=== PATIENT | female | born 1995 | race Caucasian/White ===

== ENCOUNTER 2020-01-04 09:45 | Inpatient (IN) | payer OTHER ==
[2019-12-31 11:13] VITALS: BMI 49.8
[2020-01-04] MEDS ORDERED: CITRIC ACID-SODIUM CITRATE 15 ML CUP PO ONE (10:00)
[2020-01-04] MEDS ORDERED: ceFAZolin 3 GM in SODIUM CHLORIDE 0.9% 100 ML IVPB ONE (10:00)
[2020-01-04] MEDS: LACTATED RINGERS 1,000 ML IV ONE ×2 (10:12→11:53)
[2020-01-04 10:19] LABS: Basophils % (A) 0 %; Eosinophils # (A) 0.1 k/uL (0-0.7); Eosinophils % (A) 1 %; Lymphocytes # (A) 1.5 k/uL (1.0-4.8); Lymphocytes % (A) 17 %; MCH 27.1 pg (25.0-35.0); MCHC 32.6 g/dL (31.0-37.0); MCV 83.2 fL (80.0-100.0); Mean Platelet Volume 8.7; Monocytes # (A) 0.5 k/uL (0-1.0); Monocytes % (A) 6 %; Neutrophils # (A) 6.8 k/uL (1.3-7.7); Neutrophils % (A) 75 %; Platelet Count 272 k/uL (150-450); RBC 4.81 m/uL (3.80-5.40); RDW 13.6 % (11.5-15.5); WBC 9.1 k/uL (3.8-10.6)
--- NOTE | 2020-01-04 11:15 | P.HPOB ---
History of Present Illness H&P Date: 01/04/20 Chief Complaint: Here for repeat section, declining tubal ligation This is a 24-year-old white female 2 para 1001 EDC 01/10/2020 at 39 and one sevenths weeks' gestation. Patient presents today for repeat low transverse section. She is declining option for , declining option for tubal ligation. She denies fluid leakage or vaginal bleeding. Fetus is been active throughout the . history significant for blood type A-, father of the baby is A- as well. Rubella status immune. Hepatitis B surface antigen, HIV testing, kierra orrhea and chlamydia cultures, Pap smear testing, VDRL all negative. Group B strep cultures positive. One-hour Glucola elevated, 3 hour GTT within normal limits. Family history is unremarkable. Social history patient is single, she is a current tobacco smoker. She works at a local restaurant. She denies alcohol or drug use. Past surgical history section, low transverse in 2017. Past medical history significant for obesity. ALLERGIES none known. Current medications vitamins daily. On exam patient is 5 foot 4 inches, 290 pounds, blood pressure 118/54 on admission. The general physical exam is within normal limits. Chest is clear in all gonzáles. Extremities reveal no edema. is vertex to Arnel's maneuvers, fundal height greater than 40 cm. Heart rate of the fetus consistent with reactive NST. No uterine contractions graphing. Impression: 39 and one sevenths weeks intrauterine , here for repeat low transverse section, declining tubal ligation. Positive group B strep cultures. Plan: We will proceed with repeat low transverse section, antibiotic prophylaxis. All risks benefits and alternatives have been discussed in detail. All questions answered. Review of Systems Constitutional: Reports as per HPI Past Medical History Past Medical History: No Reported History Additional Past Medical History / Comment(s): Morbid maternal obesity History of Any Multi-Drug Resistant Organisms: None Reported Past Surgical History: Section Past Anesthesia/Blood Transfusion Reactions: No Reported Reaction Past Psychological History: No Psychological Hx Reported Smoking Status: Former smoker Past Alcohol Use History: None Reported Past Drug Use History: None Reported - Past Family History Mother Family Medical History: No Reported History Medications and Allergies Home Medications Medication Instructions Recorded Confirmed Type Pnv,Calcium 72/Iron/Folic Acid 1 tab PO DAILY 02/24/17 01/04/20 History [ Plus Tablet] Allergies Allergy/AdvReac Type Severity Reaction Status Date / Time No Known Allergies Allergy Verified 01/04/20 09:59 Exam Vital Signs Temp Pulse Resp BP Pulse Ox 01/04/20 10:05 97.8 F 100 18 118/57 97 Intake and Output 01/03/20 01/04/20 01/04/20 22:59 06:59 14:59 Other: Weight 131.542 kg See dictation under HPI please Results Result Diagrams: 01/04/20 10:10 Assessment and Plan Assessment: 39 and one sevenths weeks intrauterine , declining , morbid mater nal obesity, positive group B strep cultures. Plan: We will proceed with repeat low transverse section. Antibiotic prophylaxis. All risks benefits and alternatives of the procedure have been discussed, all questions answered. Time with Patient: Less than 30
[2020-01-04] MEDS ORDERED: MORPHINE SULFATE (PF) 0.3 MG/0.3 ML SYR ONE (12:24)
[2020-01-04] MEDS ORDERED: KETOROLAC 15 MG/ML 1 ML VIAL ONE (12:24)
[2020-01-04] MEDS ORDERED: OXYTOCIN 10 UNIT/ML 1 ML VIAL ONE (12:24)
[2020-01-04] MEDS ORDERED: ONDANSETRON 4 MG/2 ML VIAL ONE (12:24)
[2020-01-04] MEDS ORDERED: HYDROmorphone (PF) 1 MG/ML ONE (12:24)
[2020-01-04] MEDS ORDERED: SIMETHICONE 80 MG CHEWABLE PO PRN (13:21)
[2020-01-04] MEDS ORDERED: ZOLPIDEM 5 MG TAB PO PRN (13:21)
[2020-01-04] MEDS ORDERED: ACETAMINOPHEN TAB 325 MG TAB PO PRN (13:21)
[2020-01-04] MEDS ORDERED: ONDANSETRON 4 MG/2 ML VIAL IVP PRN (13:21)
[2020-01-04] MEDS ORDERED: NALOXONE 0.4 MG/ML 1 ML VIAL IV PRN (13:21)
[2020-01-04] MEDS ORDERED: diphenhydrAMINE 25 MG CAP PO PRN (13:21)
[2020-01-04] MEDS ORDERED: diphenhydrAMINE 50 MG/ML 1 ML VIAL IVP PRN ×2 (13:21)
[2020-01-04] MEDS ORDERED: METOCLOPRAMIDE 5 MG/ML 2 ML VIAL IVP PRN (13:21)
[2020-01-04] MEDS ORDERED: diphenhydrAMINE 50 MG CAP PO PRN (13:21)
--- NOTE | 2020-01-04 13:21 | P.OP ---
Date of Procedure: 01/04/20 Preoperative Diagnosis: 39 and one sevenths weeks intrauterine , previous declining , morbid maternal obesity, positive group B strep status Postoperative Diagnosis: Same, liveborn male infant, nuchal cord 1. Normal-appearing tubes and ovaries bilaterally. Procedure(s) Performed: Repeat low transverse section, antibiotic prophylaxis Anesthesia: spinal Surgeon: Tania Pascual End Trimmer #1: Laina Lopez Estimated Blood Loss (ml): 500 IV fluids (ml): 1,000 Urine output (ml): 300 Pathology: none sent Condition: stable Disposition: PACU Operative Findings: Liveborn male , nuchal cord 1, 8 lbs. 15 oz., 4050 g Description of Procedure: Patient is brought to the operating suite where a spinal with Duramorph is administered without difficulty. She's placed in the dorsal supine position with left lateral uterine displacement. 3 g of Ancef are given. The appropriate timeout is performed to assure proper patient and procedural ident ification. The abdomen is prepped and draped in the usual sterile fashion, Cardenas catheter placed to direct drainage. Analgesia is checked and noted to be adequate. A repeat low transverse skin incision is made in this is carried down through the subcutaneous tissue which is approximately 8 cm in depth. Fascia is isolated, scored, extended bilaterally with curved Krause scissors. Peritoneum is next identified and incised, there is no bowel or bladder involvement. The disposable ring retractors placed now into the abdominal cavity for excellent exposure. A repeat low transverse uterine incision is made in this is extended bluntly. Infant's head is delivered in the occiput anterior position. There is a nuchal cord 1 that is reduced. Patient is officially delivered of a liveborn male at 1245 hours. Umbilical cord is doubly clamped and ligated, he is handed to waiting nurses for evaluation where scores of 8 and 9 at one and 5 minutes respectively are given. Placenta is removed manually, it is inspected and noted to be intact with trivascular cord. Uterus is then externalized. It is swept clean with a sterile sponge. The uterus is closed in a two-step fashion, first layer running locking with 0 Vicryl. Second layer imbricated with 0 Vicryl. Both tubes and ovaries appear normal to inspection. No uterine anomalies are noted. The disposable ring retractors removed. Uterus is placed back into the abdominal cavity. Bilateral gutters are inspected and cleaned. Uterine incision is once again inspected, clean and dry. The peritoneum was allowed close by secondary intention. The fascia is closed in a running stitch of 0 Vicryl suture for excellent reapproximation. Subcutaneous tissue is irrigated, noted to be clean and dry. It is reapproximated using 3-0 Vicryl in a running fashion. 4-0 undyed Monocryl is used for final skin closure. Steri-Strips and Mastisol are applied to the wound. Cardenas is noted to be draining clear urine. Uterus is ma ssaged for a small amount of bleeding. It is firm and in the midline, symmetric and 18 week size. All sponge needle and enhancement counts are correct. Patient is brought back to recovery room in very good condition with stable vital signs including 100% O2 saturation, pulse 84, blood pressure 141/62. Circumcision for her infant son.
[2020-01-04] MEDS: LACTATED RINGERS 1,000 ML IV SCH ×2 (14:20→20:21)
[2020-01-04] MEDS: SENNOSIDES-DOCUSATE SODIUM 1 EACH TAB PO SCH (20:07)
[2020-01-04] MEDS: KETOROLAC 15 MG/ML 1 ML VIAL IVP PRN (20:35)
[2020-01-05] MEDS: LACTATED RINGERS 1,000 ML IV SCH (00:33)
[2020-01-05 06:54] LABS: Basophils % (A) 0 %; Eosinophils % (A) 0 %; HCT 35.4 % (34.0-46.0); HGB 11.3 gm/dL (11.4-16.0); Lymphocytes # (A) 1.7 k/uL (1.0-4.8); Lymphocytes % (A) 17 %; MCH 26.9 pg (25.0-35.0); MCHC 31.9 g/dL (31.0-37.0); MCV 84.5 fL (80.0-100.0); Mean Platelet Volume 8.7; Monocytes # (A) 0.6 k/uL (0-1.0); Monocytes % (A) 6 %; Neutrophils # (A) 7.6 k/uL (1.3-7.7); Neutrophils % (A) 74 %; Platelet Count 242 k/uL (150-450); RDW 13.5 % (11.5-15.5); WBC 10.2 k/uL (3.8-10.6)
--- NOTE | 2020-01-05 07:10 | P.PN ---
Progress Note - Text 01/05/20 630am 24-year-old female status post with a spinal Duramorph. Patient was seen and evaluated this morning, patient has a VAS of 1 with no complaints of pruritus. Patient did have nausea when she first came out of surgery with subsequently has done well.
--- NOTE | 2020-01-05 08:24 | P.PN ---
Subjective Progress Note Date: 01/05/20 Principal diagnosis: Postoperative day #1 Slept well. Minimal pain. Minimal lochia rubra. No complaints. Positive flatus. Objective - Vital Signs Vital signs: Vital Signs Temp 98.7 F 01/05/20 00:30 Pulse 66 01/05/20 00:30 Resp 18 01/05/20 00:30 BP 120/63 01/05/20 00:30 Pulse Ox 100 01/04/20 16:00 Intake & Output 01/04/20 01/05/20 01/05/20 18:59 06:59 18:59 Output Total 100 1200 Balance -100 -1200 Weight 131.542 kg Output: Urine 900 Emesis 100 300 - Constitutional General appearance: Present: cooperative, morbidly obese - EENT Eyes: Present: PERRLA ENT: Present: hearing grossly normal - Neck Thyroid: bilateral: normal size - Respiratory Respiratory: bilateral: CTA - Cardiovascular Rhythm: regular - Gastrointestinal Gastrointestinal Comment(s): Incision well approximated, clean and dry. Fundus firm, midline, symmetric, 18 week size. General gastrointestinal: Present: normal bowel sounds - Integumentary Integumentary: Present: normal - Neurologic Neurologic: Present: CNII-XII intact - Musculoskeletal Musculoskeletal: Present: gait normal, strength equal bilaterally - Psychiatric Psychiatric: Present: A&O x's 3, appropriate affect, intact judgment & insight - Labs CBC & Chem 7: 01/05/20 05:30 Labs: Abnormal Lab Results - Last 24 Hours (Table) 01/05/20 Range/Units 05:30 Hgb 11.3 L (11.4-16.0) gm/dL Assessment and Plan Assessment: Doing well day #1. Plan: Continue postoperative care. Likely discharge home tomorrow. Time with Patient: Less than 30
[2020-01-05] MEDS: KETOROLAC 15 MG/ML 1 ML VIAL IVP PRN (08:28)
[2020-01-05] MEDS: SENNOSIDES-DOCUSATE SODIUM 1 EACH TAB PO SCH ×2 (08:29→20:24)
[2020-01-05] MEDS: HYDROcodone/APAP 5-325MG 1 EACH TAB PO PRN ×2 (13:26→20:24)
[2020-01-05] MEDS: IBUPROFEN 600 MG TAB PO PRN ×2 (17:18→23:27)
[2020-01-06] MEDS: HYDROcodone/APAP 5-325MG 1 EACH TAB PO PRN ×4 (02:31→18:41)
[2020-01-06] MEDS: IBUPROFEN 600 MG TAB PO PRN ×2 (05:43→14:53)
[2020-01-06] MEDS: SENNOSIDES-DOCUSATE SODIUM 1 EACH TAB PO SCH (07:38)
--- NOTE | 2020-01-06 08:09 | P.DS ---
Providers Date of admission: 01/04/20 09:45 Expected date of discharge: 01/06/20 Attending physician: Tania Pascual Primary care physician: Stated None Hospital Course: This is a 24-year-old white female 2 para 1001 EDC 01/10/2020 at 39 weeks gestation. Patient presented for repeat section. She was offered and declined tubal ligation. is remarkable for positive group B strep cultures, rubella status immune, blood type A-. Maternal obesity noted. Please see dictated history and physical for details. Patient underwent a repeat low transverse section, giving to a liveborn male infant with scores of 8 and 9 at one and 5 minutes respectively. There was a nuchal cord 1. weight 8 lbs. 15 oz. or 4050 g. Estimated blood loss at the time of surgery was recorded at 500 mL's. Please see dictated operative note for details. Postoperatively the patient has continued to do well. She is voiding, ambulate in, passing flatus without difficulty. Vital signs are stable and she is afebrile. Fundus is firm and midline, symmetric and 18 week size. Extremities are negative for edema. Breasts are not engorged. Incision is clean and dry, Steri-Strips applied. has been circumcised. Patient is judged to be in good condition for discharge home. She will follow-up with me in the office in 2 weeks. I have reminded her no intercourse, tampons or douching. We have briefly reviewed options for contraception and we will discuss this further in the office. She will call with any fevers shakes or chills, foul smelling or copious lochia, with the passage of large blood clots, with any pain not alleviated by [id number] products such as Advil or Aleve, or indeed with any concerns. will follow-up with service dismantler as per recommendations. Assessment: Doing well day number two Patient Condition at Discharge: Good Plan - Discharge Summary Discharge Rx Participant: No New Discharge Prescriptions: No Action Pnv,Calcium 72/Iron/Folic Acid [ Plus Tablet] 1 tab PO DAILY Discharge Medication List Pnv,Calcium 72/Iron/Folic Acid [ Plus Tablet] 1 tab PO DAILY 02/24/17 [History] Follow up Appointment(s)/Referral(s): Tania Pascual MD [STAFF PHYSICIAN] - 2 Weeks Discharge Disposition: HOME SELF-CARE
[2020-01-06 17:18] VITALS: BP 132/81; PULSE 83; RESP 15; TEMP 98
== END 2020-01-06 19:10 | disposition home or self-care (01) | DRG 807 ==
LOC: 4FBP 09:45
PROVIDERS: ADMIT Obstetrics & Gynecology; ATTEND Obstetrics & Gynecology
PROC: 10E0XZZ Delivery of Products of Conception, External Approach (ICD-10-PCS; principal; 2020-01-04 12:00)
DX: O34.211 Maternal care for low transverse scar from previous cesarean delivery (principal); Z37.0 Single live birth; O69.81X0 Labor and delivery complicated by cord around neck, without compression, not applicable or unspecified; O99.214 Obesity complicating childbirth; E66.01 Morbid (severe) obesity due to excess calories; O99.334 Smoking (tobacco) complicating childbirth; F17.200 Nicotine dependence, unspecified, uncomplicated; O99.824 Streptococcus B carrier state complicating childbirth; Z3A.39 39 weeks gestation of pregnancy
CPT/HCPCS: 85025; 86850; 86900; 86901

== ENCOUNTER 2022-12-16 11:50 | Inpatient (IN) | payer OTHER ==
[2022-12-16 12:37] LABS: Appearance,Urine Clear (Clear); Color,Urine Yellow; PH, Urine 6.5 (5.0-8.0); Specific Gravity,Urine 1.014 (1.001-1.035)
[2022-12-16 12:38] LABS: Bilirubin,Urine Negative (Negative); Blood,Urine Negative (Negative); Glucose,Urine (UA) Negative (Negative); Ketones,Urine Negative (Negative); Leukocyte Esterase,Urine Negative (Negative); Nitrite,Urine Negative (Negative); Protein,Urine Negative (Negative); Urobilinogen,Urine <2.0 mg/dL (<2.0)
[2022-12-16 12:42] LABS: Basophils % (A) 0 %; Eosinophils # (A) 0.1 k/uL (0-0.7); Eosinophils % (A) 1 %; HCT 36.9 % (34.0-46.0); HGB 12.7 gm/dL (11.4-16.0); Lymphocytes # (A) 1.4 k/uL (1.0-4.8); Lymphocytes % (A) 18 %; MCH 28.6 pg (25.0-35.0); MCHC 34.5 g/dL (31.0-37.0); Mean Platelet Volume 8.5; Monocytes # (A) 0.5 k/uL (0-1.0); Monocytes % (A) 6 %; Neutrophils # (A) 5.7 k/uL (1.3-7.7); Neutrophils % (A) 73 %; Platelet Count 229 k/uL (150-450); RBC 4.44 m/uL (3.80-5.40); RDW 13.7 % (11.5-15.5); WBC 7.9 k/uL (3.8-10.6)
[2022-12-16 12:58] LABS: Creatinine,Urine Random 70.2 mg/dL; Protein/Creatinine Ratio,Urine 0.085
[2022-12-16 13:06] LABS: ALT 16 U/L (4-34); AST 17 U/L (14-36); African American GFR (CKD) >90 (>60 ml/min/1.73 sqM); Blood Urea Nitrogen 8 mg/dL (7-17); LDH 158 U/L (120-246); Non-African American GFR(CKD) >90 (>60 ml/min/1.73 sqM); Uric Acid 4.4 mg/dL (3.7-7.4)
[2022-12-16] MEDS ORDERED: TRANEXAMIC 1,000 MG/100ML-NACL 1,000 MG in EMPTY BAG 1 BAG IV PRN (13:43)
[2022-12-16] MEDS ORDERED: CITRIC ACID-SODIUM CITRATE 15 ML CUP PO ONE (13:43)
[2022-12-16] MEDS ORDERED: OXYTOCIN 10 UNIT/ML 1 ML VIAL IM PRN (13:43)
[2022-12-16] MEDS ORDERED: METHYLERGONOVINE 0.2 MG/ML 1 ML AMP IM PRN (13:43)
[2022-12-16] MEDS ORDERED: ceFAZolin 3 GM in SODIUM CHLORIDE 0.9% 100 ML IVPB ONE (13:43)
[2022-12-16] MEDS ORDERED: CARBOPROST TROMETHAMINE 250 MCG/ML 1 ML AMP IM PRN (13:43)
[2022-12-16] MEDS ORDERED: miSOPROStoL 200 MCG TAB PO PRN (13:43)
[2022-12-16] MEDS ORDERED: LACTATED RINGERS 1,000 ML IV ONE (16:45)
[2022-12-16 17:05] LABS: INR 0.9 (<1.2); Prothrombin Time 9.6 sec (9.0-12.0)
[2022-12-16 17:10] LABS: Partial Thromboplastin Time 21.8 sec (22.0-30.0)
[2022-12-16] MEDS ORDERED: KETOROLAC 15 MG/ML 1 ML VIAL ONE (17:14)
[2022-12-16] MEDS ORDERED: MORPHINE SULFATE (PF) 0.3 MG/0.3 ML SYR ONE (17:14)
[2022-12-16] MEDS ORDERED: NALBUPHINE 10 MG/ML (10 ML MDV) ONE (17:14)
[2022-12-16] MEDS ORDERED: ONDANSETRON 4 MG/2 ML VIAL ONE (17:14)
[2022-12-16] MEDS ORDERED: OXYTOCIN 30 UNITS/500 ML NS BAG IV ONE (17:14)
--- NOTE | 2022-12-16 17:18 | P.HPOB ---
History of Present Illness H&P Date: 12/16/22 Chief Complaint: Elevated blood pressures at term Ms. Loera is a 27 year old at 37 weeks and 4 days with EDC of 01/02/2023 (by LMP consistent with 9 week US) who was sent from the office for elevated blood pressures 140s/90s in the office. The patient also complains of intermittent headache that she does not want to take medication for because she wants to see if it resolves on its own. She rates the headache 4/10. Pre- eclampsia labs on arrival were within normal limits and urine protein to creatinine ratio was 0.08. The is also complicated by rh negative status for which she received rhogam at 28 weeks. Growth ultrasound of the fetus at 34 weeks estimated the fetus to measure in the 74%ile. Obstetric history: 2 prior full-term sections Maternal work-up: blood type A negative, antibody negative, rubella immune, VDRL non-reactive, HBsAg negative, HIV negative, gonorrhea negative, chlamydia negative, 1 hour GTT 124, GBS unknown, TDap declined. Past surgical history: 2 c-sections Past medical history: None Past Medical History Past Medical History: No Reported History Additional Past Medical History / Comment(s): Morbid maternal obesity History of Any Multi-Drug Resistant Organisms: None Reported Past Surgical History: Section Past Anesthesia/Blood Transfusion Reactions: No Reported Reaction Past Psychological History: No Psychological Hx Reported Smoking Status: Former smoker Past Alcohol Use History: None Reported Past Drug Use History: None Reported - Past Family History Mother Family Medical History: No Reported History Medications and Allergies Home Medications Medication Instructions Recorded Confirmed Type Pnv,Calcium 72/Iron/Folic Acid 1 tab PO DAILY 02/24/17 12/16/22 History [ Plus Tablet] Allergies Allergy/AdvReac Type Severity Reaction Status Date / Time No Known Allergies Allergy Verified 01/04/20 09:59 Exam Vital Signs Temp Pulse Resp BP Pulse Ox 12/16/22 16:11 97.9 F 85 17 136/70 98 12/16/22 12:02 97.9 F 85 16 136/70 98 Intake and Output 12/16/22 12/16/22 12/16/22 06:59 14:59 22:59 Other: Weight 134.263 kg 134.263 kg Focused physical exam is performed. Patient is healthy-appearing, has non- labored breathing. Abdomen is gravid, non-tender. Extremities non-edematous, non-tender. heart tones are reactive and reassuring on NST. Results Result Diagrams: 12/16/22 12:31 12/16/22 12:31 Abnormal Lab Results - Last 24 Hours (Table) 12/16/22 Range/Units 12:31 Creatinine 0.48 L (0.52-1.04) mg/dL Assessment and Plan Assessment: 27 year old at 37 weeks and 4 days presenting for repeat section for newly diagnosed gestational hypertension. Plan: 1. Gestational HTN. PIH labs normal. Patient with intermittent mild headache, refusing medication, continue to monitor for need for Mag Sulfate. 2. Repeat C/S. NPO since 800, IV Ancef ordered. Dispo: Admit for repeat c/s
[2022-12-16] MEDS ORDERED: SIMETHICONE 80 MG CHEWABLE PO PRN (18:49)
[2022-12-16] MEDS ORDERED: NALOXONE 0.4 MG/ML 1 ML VIAL IV PRN (18:49)
[2022-12-16] MEDS ORDERED: diphenhydrAMINE 50 MG/ML 1 ML VIAL IVP PRN ×2 (18:49)
[2022-12-16] MEDS ORDERED: diphenhydrAMINE 50 MG CAP PO PRN (18:49)
[2022-12-16] MEDS ORDERED: ONDANSETRON 4 MG/2 ML VIAL IVP PRN (18:49)
[2022-12-16] MEDS ORDERED: ZOLPIDEM 5 MG TAB PO PRN (18:49)
[2022-12-16] MEDS ORDERED: diphenhydrAMINE 25 MG CAP PO PRN (18:49)
[2022-12-16] MEDS ORDERED: METOCLOPRAMIDE 5 MG/ML 2 ML VIAL IVP PRN (18:49)
--- NOTE | 2022-12-16 18:49 | P.OP ---
Date of Procedure: 12/16/22 Preoperative Diagnosis: 1. Term IUP at 37 weeks and 4 days 2. Gestational Hypertension 3. History of 2 prior sections Postoperative Diagnosis: 1. Term IUP at 37 weeks and 4 days 2. Gestational Hypertension 3. History of prior sections x2 4. Uterine Window 5. Severe adhesive disease Procedure(s) Performed: Repeat Section Implants: None Anesthesia: spinal Surgeon: Aracelis Gaytan Track Repair Person #1: Margie Santos Estimated Blood Loss (ml): 450 IV fluids (ml): 800 Urine output (ml): 150 (clear yellow) Pathology: none sent Condition: stable Disposition: floor Indications for Procedure: This is a 27 year old at 37 weeks and 4 days with newly diagnosed gestational hypertension. Pre-eclampsia labs were within normal limits and urine protein to creatinine ratio was 0.08. The patient has a history of 2 prior sections and we have planned for a repeat section this . section was recommended to the patient at this time for maternal and well-being. Risks, benefits, and alternatives to section were discussed with the patient including risk of bleeding, infection, damage to surrounding structures including bladder/bowel/ureters, and post- operative VTE. The patient understands these risks and desires to proceed. Operative Findings: Severe adhesive disease in the pelvis with bladder very adherent to the anterior uterus. Viable female in cephalic presentation. Apgars were 9 and 9 at 1 and 5 minute respectively. The weight 7 pounds and 7 ounces (3360 grams). Lower uterine segment was very thin compatible with a uterine window. Normal fallopian tubes and ovaries. Patient would not be a good candidate for vaginal hysterectomy in the future given adhesions. Description of Procedure: The patient was taken to the operating room where spinal anesthesia was found to be adequate. Two grams of Ancef were given for infection prophylaxis. She was prepared and draped in the dorsal supine position with a leftward tilt. A Pfannenstiel skin incision was made with the scalpel. The incision was carried down to the fascia with a bovie. The fascia was incised and extended laterally with Krause scissors. The superior aspect of the fascia was grasped with Brian clamps. The underlying rectus muscle was dissected off sharply with Krause scissors. In a similar fashion, the inferior aspect of the fascia was elevated with Brian clamps and the rectus muscle and pyramidalis were dissected off. Excellent hemostasis was achieved with the bovie. The rectus muscle was in the midline down to the level of the pubic symphysis. Pre- peritoneal fatty tissue was bluntly dissected to expose the peritoneum. The peritoneum was entered bluntly. The peritoneal incision was extended superiorly and inferiorly to the bladder reflection with good visualization of the bladder. The bladder blade was inserted and vesicouterine peritoneum was identified. Intraabdominal survey revealed scant, clear peritoneal fluid and the thinned-out lower uterine segment. The vesicouterine peritoneum was opened with scissors and the bladder flap was developed. The bladder blade was repositioned to keep the bladder out of the operative field. A uterine window was noted at the lower uterine segment. The lower uterine segment was incised with a scalpel. Clear amniotic fluid was noted. The uterine incision was extended bluntly with lateral and upward traction. The fetus was in cephalic position. The head was elevated out of the pelvis with special attention paid to avoid using the uterine incision as a fulcrum. Gentle fundal pressure was applied once the head was brought into the incision. The infant was delivered with no difficulty. The mouth and nose were suctioned with a bulb. The cord was clamped and cut. was noted to be spontaneously crying. The infant was handed off to the toy parts former supervisor. IV oxytocin was initiated to facilitate uterine contractions. The placenta was delivered intact with manual massage of uterine fundus. The uterus was then exteriorized and the inside of the uterus was gently wiped with a lap sponge to assure complete removal of placental membranes. The uterine incision was closed with a 0-Polysorb suture in a running locked fashion. A second imbricating layer of 0-Polysorb was placed along the incision. The ovaries and tubes were found to be normal. The uterus, tubes, and ovaries were then gently returned to the abdominal cavity. The blood clots and fluid were wiped out of the abdomen and pelvis with moist laparotomy sponges. The pelvis was copiously suction irrigated. The uterine incision was reinspected and excellent hemostasis was noted. The fascial layer was closed with a 0-Vicryl suture. The subcutaneous tissue was reapproximated with 2-0 Plain Gut. The skin was closed with 4-0 Monocryl in a subcuticular fashion. The patient tolerated the procedure well. All the counts were correct times two. The patient was taken to the recovery room in a stable condition.
[2022-12-16] MEDS ORDERED: Rhogam IMMUNE GLOBULIN 1,500 UNIT/1 ML IM ONE (19:00)
[2022-12-16] MEDS: SENNOSIDES-DOCUSATE SODIUM 1 EACH TAB PO SCH (20:48)
[2022-12-16] MEDS: LACTATED RINGERS 1,000 ML IV SCH (21:00)
[2022-12-16] MEDS: ACETAMINOPHEN IV (For NPO) 1,000 MG in EMPTY BAG 1 BAG IVPB SCH (22:43)
[2022-12-17] MEDS: ACETAMINOPHEN TAB 500 MG TAB PO SCH ×5 (00:58→21:30)
[2022-12-17] MEDS: LACTATED RINGERS 1,000 ML IV SCH ×6 (01:24→14:54)
[2022-12-17] MEDS: KETOROLAC 15 MG/ML 1 ML VIAL IVP SCH ×4 (01:24→10:40)
[2022-12-17 07:20] LABS: Basophils % (A) 0 %; Eosinophils % (A) 0 %; HCT 33.7 % (34.0-46.0); HGB 11.4 gm/dL (11.4-16.0); Lymphocytes # (A) 1.1 k/uL (1.0-4.8); Lymphocytes % (A) 11 %; MCH 28.2 pg (25.0-35.0); MCHC 33.9 g/dL (31.0-37.0); MCV 83.1 fL (80.0-100.0); Mean Platelet Volume 8.7; Monocytes # (A) 0.5 k/uL (0-1.0); Monocytes % (A) 5 %; Neutrophils # (A) 8.4 k/uL (1.3-7.7); Neutrophils % (A) 82 %; Platelet Count 196 k/uL (150-450); RBC 4.06 m/uL (3.80-5.40); RDW 13.5 % (11.5-15.5); WBC 10.2 k/uL (3.8-10.6)
[2022-12-17] MEDS: SENNOSIDES-DOCUSATE SODIUM 1 EACH TAB PO SCH ×2 (07:39→21:30)
[2022-12-17] MEDS: ACETAMINOPHEN IV (For NPO) 1,000 MG in EMPTY BAG 1 BAG IVPB SCH ×2 (07:39→14:34)
--- NOTE | 2022-12-17 09:07 | P.PN ---
Progress Note - Text Progress Note Date: 12/17/22 Patient was seen, and evaluated at bedside. Postop day 1 for under spinal analgesia with Astramorph 300 g for postop pain. Today patient is comfortable sitting in her bed. Today patient rated her pain level 3 out of 10 in severity. Denied any fever, drowsiness, confusion. Denied any weakness, tingling sensation in her lower extremities. Denied any bowel or bladder problems. Moving all extremities without any difficulty. Able to walk without any difficulties. Vitals: Hemodynamically stable Continue oral pain medication as per primary team.
--- NOTE | 2022-12-17 10:00 | P.PNOBGPC ---
Subjective - Subjective Principal diagnosis: s/p repeat section, gestational hypertension Interval history: The patient is doing well this morning and had no acute events overnight. She has no complaints this morning. She reports minimal lochia, passing flatus, voiding without difficulty, ambulating, and eating/drinking without nausea or vomiting. She is breast-feeding her without difficulty. She denies chest pain, shortness of breathing, fevers, or chills overnight. She denies pain or swelling in the legs. Patient reports: Reports appetite normal, Reports voiding normally, Reports pain well controlled, Reports ambulating normally Keymar: doing well (in nursery), nursing well Objective - Vital Signs Latest vital signs: Vital Signs Temp Pulse Resp BP Pulse Ox 12/17/22 08:00 97.9 F 68 18 110/63 98 12/17/22 04:00 98.8 F 79 16 107/70 99 12/17/22 00:00 97.5 F L 79 16 110/70 97 12/16/22 20:38 94.6 F L 72 17 111/53 12/16/22 20:07 98.2 F 85 17 99/54 98 12/16/22 19:38 96.8 F L 77 17 112/57 97 12/16/22 19:23 92 17 94/63 97 12/16/22 19:08 81 17 100/59 94 L 12/16/22 18:53 79 17 108/53 96 12/16/22 18:38 97.7 F 77 17 117/55 98 12/16/22 16:11 97.9 F 85 17 136/70 98 12/16/22 12:02 97.9 F 85 16 136/70 98 Intake and Output 12/16/22 12/17/22 12/17/22 22:59 06:59 14:59 Intake Total 1800 Output Total 605 700 Balance 1195 -700 Intake: IV 1800 Output: Urine 30 600 Uretheral (Cardenas) 300 Emesis 100 Output, Quantitative 575 Blood Loss Other: Voiding Method Indwelling Catheter Indwelling Catheter # Voids 150 0 Weight 134.263 kg - Exam Extremities: Present: normal Abdomen: Present: normal appearance, soft Incision: Present: normal, dressed Uterus: Present: normal, firm - Labs Labs: Abnormal Lab Results - Last 24 Hours (Table) 12/16/22 12/16/22 12/17/22 Range/Units 12:31 16:27 06:37 Hct 33.7 L (34.0-46.0) % Neutrophils # 8.4 H (1.3-7.7) k/uL APTT 21.8 L (22.0-30.0) sec Creatinine 0.48 L (0.52-1.04) mg/dL Assessment and Plan Assessment: 27 year old now POD#1 s/p repeat section at 37 weeks and 4 days for gestational hypertension Plan: 1. Postoperative. Patient meeting all postoperative milestones appropriately. Continue to monitor. 2. Gestational HTN. PIH labs 12/16 normal with P:C of 0.08. Blood pressures prior to delivery 130s-150s/70s-90s with one isolated severe range blood pressure 164/90 in the OR. Since delivery, blood pressures have been normotensive and the patient is asymptomatic. 3. Viable female . Doing well in the nursery, having some respiratory distress. Dispo: Anticipate discharge home tomorrow.
[2022-12-17] MEDS: IBUPROFEN IV 800 MG in SODIUM CHLORIDE 0.9% 250 ML IV SCH ×2 (10:07→14:34)
[2022-12-17] MEDS: IBUPROFEN 600 MG TAB PO SCH (16:54)
[2022-12-18] MEDS: IBUPROFEN 600 MG TAB PO SCH ×2 (00:31→08:18)
[2022-12-18 01:26] VITALS: RESP 16
[2022-12-18] MEDS: ACETAMINOPHEN TAB 500 MG TAB PO SCH (03:25)
[2022-12-18] MEDS: SENNOSIDES-DOCUSATE SODIUM 1 EACH TAB PO SCH ×2 (08:17→08:18)
[2022-12-18] MEDS ORDERED: HYDROCORTISONE 1% CREAM 30 GM TUBE TOPICAL PRN (08:29)
--- NOTE | 2022-12-18 08:37 | P.DS ---
Providers Date of admission: 12/16/22 13:46 Expected date of discharge: 12/18/22 Attending physician: Aracelis Gaytan MD Primary care physician: Stated None Hospital Course: This is a 27 year old now POD#2 s/p repeat section who desires discharge home today. The patient was delivered in the 37th week secondary to newly diagnosed gestational hypertension. , the patient has had all normotensive blood pressures and has been asymptomatic. The patient is doing well this morning and had no acute events overnight. A silver dressing was applied to the incision yesterday evening and the patient has had an allergic reaction to the dressing with erythema and blistering surrounding the incision. The dressing has been removed this morning. She reports minimal lochia, passing flatus, voiding without difficulty, ambulating, and eating/drinking without nausea or vomiting. Infant doing well at bedside, breast-feeding well. She denies chest pain, shortness of breathing, fevers, or chills overnight. She denies pain or swelling in the legs. Postoperative restrictions are reviewed with the patient including pelvic rest for 6 weeks, no lifting heavier than 15 pounds for 6 weeks. The patient is encouraged to call the office if she experiences any heavy bleeding, foul-smelling discharge, breast complaints, or any if she has any other concerns. She will follow up in the office in 2 weeks or postoperative exam. All questions are answered. She will go home with Motrin, Tylenol, Oxycodone for breakthrough pain, and stool softeners. Assessment: 27 year old now POD#2 s/p repeat section at 37 weeks 2/2 gestational hypertension. Plan - Discharge Summary New Discharge Prescriptions: No Action Pnv,Calcium 72/Iron/Folic Acid [ Plus Tablet] 1 tab PO DAILY Discharge Medication List Pnv,Calcium 72/Iron/Folic Acid [ Plus Tablet] 1 tab PO DAILY 02/24/17 [History]
[2022-12-18 09:04] VITALS: BP 118/69; PULSE 82; TEMP 97.8
== END 2022-12-18 12:10 | disposition home or self-care (01) | DRG 540 ==
LOC: FBPOP 11:50 → 4FBP 13:46
PROVIDERS: ADMIT Obstetrics & Gynecology; ATTEND Obstetrics & Gynecology
PROC: 10D00Z1 Extraction of Products of Conception, Low, Open Approach (ICD-10-PCS; principal; 2022-12-16 17:00)
DX: O13.4 Gestational [pregnancy-induced] hypertension without significant proteinuria, complicating childbirth (principal); O34.211 Maternal care for low transverse scar from previous cesarean delivery; O26.893 Other specified pregnancy related conditions, third trimester; O34.593 Maternal care for other abnormalities of gravid uterus, third trimester; O99.892 Other specified diseases and conditions complicating childbirth; N73.6 Female pelvic peritoneal adhesions (postinfective); L23.1 Allergic contact dermatitis due to adhesives; Z67.11 Type A blood, Rh negative; O99.214 Obesity complicating childbirth; E66.01 Morbid (severe) obesity due to excess calories; Z28.310 Unvaccinated for COVID-19; Z87.891 Personal history of nicotine dependence; Z3A.37 37 weeks gestation of pregnancy; Z37.0 Single live birth
CPT/HCPCS: 59025; 81003; 82565; 82570; 83615; 84156; 84450; 84460; 84520; 84550; 85025; 85610; 85730; 86850; 86900; 86901; 99213

== ENCOUNTER 2023-11-11 14:32 | Emergency (ER) | payer BC, OTHER ==
--- NOTE | 2023-11-11 15:00 | ED ---
General Adult HPI - General Source: patient, RN notes reviewed Mode of arrival: ambulatory Limitations: no limitations <Edgar Tran - Last Filed: 11/11/23 14:59> <Deric Scott - Last Filed: 11/11/23 18:09> - General Stated complaint: Back pain, abd pain, sob Time Seen by Provider: 11/11/23 14:45 - History of Present Illness Initial comments: Quick [id number] female presents emergency department chief complaint of abdominal pain, flank pain, nausea vomiting diarrhea. She states that she has had symptoms for last 2 weeks states that she feels dehydrated she started having flank pain and what she describes in her kidney area. She states she does have some symptoms are going to her chest. (Edgar Tran) Dictation was produced using [employer] dictation software. please excuse any grammatical, word or spelling errors. Chief Complaint: 28-year-old obese female presents emergency department with a bdominal pain and back pain History of Present Illness: Patient 28-year-old female she denies any s ignificant comorbidities states that for the last few days she has been having bouts of abdominal pain flank pain back pain nausea vomiting diarrhea. She not sure if this is related to consumption of pork. She states that yesterday she had similar symptoms despite e not eating pork. Denies any fever, chills or night sweats. Patient denies any symptoms at this time. The ROS documented in this emergency department record has been reviewed and confirmed by me. Those systems with pertinent positive or negative responses have been documented in the HPI. All other systems are other negative and/or noncontributory. (Deric Scott) - Related Data Home Medications Medication Instructions Recorded Confirmed Pnv,Calcium 72/Iron/Folic Acid 1 tab PO DAILY 02/24/12/16/22 [ Plus Tablet] Previous Rx's Medication Instructions Recorded Acetaminophen Tab [Tylenol] 650 mg PO Q6H PRN #30 tab 12/18/22 Ibuprofen [Motrin] 600 mg PO Q6HR PRN #30 tab 12/18/22 oxyCODONE HCL [Roxicodone] 5 mg PO Q6HR PRN 3 Days #12 tab 12/18/22 polyethylene glycoL 3350 [Miralax] 17 gm PO DAILY PRN #527 gm 12/18/22 HYDROcodone/APAP 5-325MG [Leupp 1 tab PO Q6HR PRN 3 Days #12 tab 11/11/23 5-325] Ondansetron Odt [Zofran Odt] 4 mg PO Q8HR PRN #12 tab 11/11/23 Allergies Allergy/AdvReac Type Severity Reaction Status Date / Time adhesive AdvReac Rash/Hives Verified 11/11/23 15:15 adhesive tape AdvReac Rash/Hives Verified 11/11/23 15:15 Review of Systems ROS Other: All systems not noted in ROS Statement are negative. <Edgar Tran - Last Filed: 11/11/23 14:59> ROS Other: All systems not noted in ROS Statement are negative. <Deric Scott - Last Filed: 11/11/23 18:09> ROS Statement: Those systems with pertinent positive or pertinent negative responses have been documented in the HPI. Past Medical History Past Medical History: No Reported History Additional Past Medical History / Comment(s): Morbid maternal obesity History of Any Multi-Drug Resistant Organisms: None Reported Past Surgical History: Section Past Anesthesia/Blood Transfusion Reactions: No Reported Reaction Past Psychological History: No Psychological Hx Reported Smoking Status: Former smoker Past Alcohol Use History: None Reported Past Drug Use History: None Reported - Past Family History Mother Family Medical History: No Reported History <Edgar Tran - Last Filed: 11/11/23 14:59> General Exam <Edgar Tran - Last Filed: 11/11/23 14:59> <Deric Scott - Last Filed: 11/11/23 18:09> - General Exam Comments Initial Comments: Visual Physical Exam Vital signs reviewed General: Well-appearing, nontoxic, no acute distress. Head: Normocephalic, atraumatic Eyes: PERRLA, EOMI ENT: Airway patent Chest: Nonlabored breathing Skin: No visual rash, normal skin tone Neuro: Alert and oriented 3 Musculoskeletal: No gross abnormalities (Edgar Tran) PHYSICAL EXAM: General Impression: Alert and oriented x3, not in acute distress HEENT: Normocephalic atraumatic, extra-ocular movements intact, pupils equal and reactive to light bilaterally, mucous membranes moist. Cardiovascular: Heart regular rate and rhythm Chest: Able to complete full sentences, no retractions, no tachypnea Abdomen: abdomen soft, non-tender, non-distended, no organomegaly Musculoskeletal: Pulses present and equal in all extremities, no peripheral edema Motor: no focal deficits noted Neurological: CN II-XII grossly intact, no focal motor or sensory deficits noted Skin: Intact with no visualized rashes Psych: Normal affect and mood (Deric Scott) Course Vital Signs 11/11/23 15:14 Temperature 98.0 F Pulse Rate 86 Respiratory 18 Rate Blood Pressure 144/86 O2 Sat by Pulse 100 Oximetry Medical Decision Making <Edgar Tran - Last Filed: 11/11/23 14:59> - Lab Data Result diagrams: 11/11/23 15:12 11/11/23 15:12 <Deric Scott - Last Filed: 11/11/23 18:09> - Medical Decision Making I completed the quick note portion of this chart signed Edgar Tran PA-C (Edgar Tran) Was pt. sent in by a medical professional or institution ([facility], [employer] [facility], urgent care, hospital, or shelter...) When possible be specific @ -No Did you speak to anyone other than the patient for history (EMS, parent, family, police, friend...)? What history was obtained from this source @ -No Did you review nursing and triage notes (agree or disagree)? Why? @ -I reviewed and agree with nursing and triage notes Were old charts reviewed (outside hosp., previous admission, EMS record, old EKG, old radiological studies, urgent care reports/EKG's, shelter records)? Report findings @ -No old charts were reviewed Differential Diagnosis (chest pain, altered mental status, abdominal pain women, abdominal pain men, vaginal bleeding, musculoskeletal, weakness, fever, dyspnea, syncope, headache, dizziness, GI bleed, back pain, seizure, CVA, palpatations, mental health)? @ -Differential Abdominal Pain Women: Appendicitis, Cholecystitis, diverticulosis, ischemic bowel, pancreatitis, hepatitis, UTI, gastroenteritis, AAA, incarcerated hernia, bowel obstruction, constipation, inflammatory bowel, hepatitis, peptic ulcer disease, splenic infarction, perforated viscus, vulvitis, ovarian torsion, PID, kidney stone, placenta abruption, this is not meant to be an all-inclusive list EKG interpreted by me (3pts min.). @ -None done X-rays interpreted by me (1pt min.). @ -None done CT interpreted by me (1pt min.). @ -None done U/S interpreted by me (1pt. min.). @ -None done What testing was considered but not performed or refused? (CT, X-rays, U/S, labs)? Why? @ -None What meds were considered but not given or refused? Why? @ -None Was smoking cessation discussed for >3mins.? @ -No Were there social determinants of health that impacted care today? How? (Homelessness, low income, unemployed, alcoholism, drug addiction, transportation, low edu. Level, literacy, decrease access to med. care, alf, rehab)? @ -No Was there de-escalation of care discussed even if they declined (Discuss DNR or withdrawal of care, Hospice)? DNR status @ -No What co-morbidities impacted this encounter? (DM, HTN, Smoking, COPD, CAD, Cancer, CVA, ARF, Chemo, Hep., AIDS, mental health diagnosis, sleep apnea, morbid obesity)? @ -None Was patient admitted / discharged? Hospital course, mention meds given and route, prescriptions, significant lab abnormalities, going to OR and other per tinent info. @ -38-year-old female presents to the emergency department with episodes of GI symptoms which include mid back pain, abdominal pain nausea and diarrhea. Patient well-appearing at the bedside. Vital signs are stable. Physical examination is benign. Abdomen is soft nontender. Laboratory evaluation obtained. CBC shows no leukocytosis. Metabolic panel is negative. Abdominal labs are negative. Urinalysis negative. test negative. Due to significant holds in the emergency department she was seen and evaluated in [facility]. She is agreeable for discharge from the waiting room. Patient with prescription for pain medication and nausea medication. Patient is satisfied with plan and is agreeable to discharge. Did you discuss the management of the patient with other professionals (professionals i.e. , PA, [employer], lab, RT, psych nurse, psychologist social, restaurant shift leader, teacher, youth probation officer, case finisher)? Give summary @ -No Was critical care preformed (if so, how long)? @ -No Undiagnosed new problem with uncertain prognosis? @ -No Drug Therapy requiring intensive monitoring for toxicity (Heparin, Nitro, Insulin, Cardizem)? @ -No Were any procedures done? @ -No Diagnosis/symptom? Acute, or Chronic, or Acute on Chronic? Uncomplicated (without systemic symptoms) or Complicated (systemic symptoms)? @ -Abdominal pain, NOS, no high risk features Side effects of treatment? @ -No Exacerbation, Progression, or Severe Exacerbation? @ -No Poses a threat to life or bodily function? How? (Chest pain, USA, LA, pneumonia, PE, COPD, DKA, ARF, appy, cholecystitis, CVA, Diverticulitis, Homicidal, Suicidal, threat to staff... and all critical care pts) @ -No (Deric Scott) - Lab Data Lab Results 11/11/23 11/11/23 11/11/23 Range/Units 15:12 15:12 15:12 WBC 10.6 (3.8-10.6) k/uL RBC 5.52 H (3.80-5.40) m/uL Hgb 15.6 (11.4-16.0) gm/dL Hct 47.7 H (34.0-46.0) % MCV 86.5 (80.0-100.0) fL MCH 28.3 (25.0-35.0) pg MCHC 32.7 (31.0-37.0) g/dL RDW 12.9 (11.5-15.5) % Plt Count 302 (150-450) k/uL MPV 7.9 Neutrophils % 73 % Lymphocytes % 19 % Monocytes % 5 % Eosinophils % 1 % Basophils % 1 % Neutrophils # 7.7 (1.3-7.7) k/uL Lymphocytes # 2.0 (1.0-4.8) k/uL Monocytes # 0.5 (0-1.0) k/uL Eosinophils # 0.2 (0-0.7) k/uL Basophils # 0.1 (0-0.2) k/uL Sodium (137-145) mmol/L Potassium (3.5-5.1) mmol/L Chloride (98-107) mmol/L Carbon Dioxide (22-30) mmol/L Anion Gap mmol/L BUN (7-17) mg/dL Creatinine (0.52-1.04) mg/dL Est GFR (CKD-EPI)AfAm (>60 ml/min/1.73 sqM) Est GFR (CKD-EPI)NonAf (>60 ml/min/1.73 sqM) Glucose (74-99) mg/dL Plasma Lactic Acid Sebastian (0.7-2.0) mmol/L Calcium (8.4-10.2) mg/dL Total Bilirubin (0.2-1.3) mg/dL AST (14-36) U/L ALT (4-34) U/L Alkaline Phosphatase (38-126) U/L Total Protein (6.3-8.2) g/dL Albumin (3.5-5.0) g/dL Lipase (23-300) U/L Urine Color Light Yellow Urine Appearance Cloudy H (Clear) Urine pH 7.0 (5.0-8.0) Ur Specific Agenda 1.021 (1.001-1.035) Urine Protein Negative (Negative) Urine Glucose (UA) Negative (Negative) Urine Ketones 2+ H (Negative) Urine Blood Negative (Negative) Urine Nitrite Negative (Negative) Urine Bilirubin Negative (Negative) Urine Urobilinogen <2.0 (<2.0) mg/dL Ur Leukocyte Esterase Negative (Negative) Urine RBC 1 (0-5) /hpf Urine WBC 1 (0-5) /hpf Ur Squamous Epith Cells 9 H (0-4) /hpf Urine Mucus Rare H (None) /hpf Urine HCG, Qual Not Detected (Not Detectd) 11/11/23 11/11/23 Range/Units 15:12 15:12 WBC (3.8-10.6) k/uL RBC (3.80-5.40) m/uL Hgb (11.4-16.0) gm/dL Hct (34.0-46.0) % MCV (80.0-100.0) fL MCH (25.0-35.0) pg MCHC (31.0-37.0) g/dL RDW (11.5-15.5) % Plt Count (150-450) k/uL MPV Neutrophils % % Lymphocytes % % Monocytes % % Eosinophils % % Basophils % % Neutrophils # (1.3-7.7) k/uL Lymphocytes # (1.0-4.8) k/uL Monocytes # (0-1.0) k/uL Eosinophils # (0-0.7) k/uL Basophils # (0-0.2) k/uL Sodium 138 (137-145) mmol/L Potassium 3.4 L (3.5-5.1) mmol/L Chloride 103 (98-107) mmol/L Carbon Dioxide 27 (22-30) mmol/L Anion Gap 8 mmol/L BUN 14 (7-17) mg/dL Creatinine 0.74 (0.52-1.04) mg/dL Est GFR (CKD-EPI)AfAm >90 (>60 ml/min/1.73 sqM) Est GFR (CKD-EPI)NonAf >90 (>60 ml/min/1.73 sqM) Glucose 107 H (74-99) mg/dL Plasma Lactic Acid Sebastian 0.8 (0.7-2.0) mmol/L Calcium 9.3 (8.4-10.2) mg/dL Total Bilirubin 0.9 (0.2-1.3) mg/dL AST 19 (14-36) U/L ALT 20 (4-34) U/L Alkaline Phosphatase 58 (38-126) U/L Total Protein 7.0 (6.3-8.2) g/dL Albumin 4.5 (3.5-5.0) g/dL Lipase 89 (23-300) U/L Urine Color Urine Appearance (Clear) Urine pH (5.0-8.0) Ur Specific Agenda (1.001-1.035) Urine Protein (Negative) Urine Glucose (UA) (Negative) Urine Ketones (Negative) Urine Blood (Negative) Urine Nitrite (Negative) Urine Bilirubin (Negative) Urine Urobilinogen (<2.0) mg/dL Ur Leukocyte Esterase (Negative) Urine RBC (0-5) /hpf Urine WBC (0-5) /hpf Ur Squamous Epith Cells (0-4) /hpf Urine Mucus (None) /hpf Urine HCG, Qual (Not Detectd) Disposition <Edgar Tran - Last Filed: 11/11/23 14:59> Is patient prescribed a controlled substance at d/c from ED?: Yes If prescribed controlled substance>3 days was MAPS reviewed?: Prescribed <3 Days Time of Disposition: 18:04 <Deric Scott - Last Filed: 11/11/23 18:09> Clinical Impression: Abdominal pain Disposition: HOME SELF-CARE Condition: Good Instructions (If sedation given, give patient instructions): Abdominal Pain (ED) Prescriptions: HYDROcodone/APAP 5-325MG [Leupp 5-325] 1 tab PO Q6HR PRN 3 Days #12 tab PRN Reason: Severe Pain Ondansetron Odt [Zofran Odt] 4 mg PO Q8HR PRN #12 tab PRN Reason: Nausea Referrals: None,Stated [Primary Care Provider] - 1-2 days
[2023-11-11 15:43] LABS: Basophils # (A) 0.1 k/uL (0-0.2); Basophils % (A) 1 %; Eosinophils # (A) 0.2 k/uL (0-0.7); Eosinophils % (A) 1 %; HCT 47.7 % (34.0-46.0); HGB 15.6 gm/dL (11.4-16.0); Lymphocytes % (A) 19 %; MCH 28.3 pg (25.0-35.0); MCHC 32.7 g/dL (31.0-37.0); MCV 86.5 fL (80.0-100.0); Mean Platelet Volume 7.9; Monocytes # (A) 0.5 k/uL (0-1.0); Monocytes % (A) 5 %; Neutrophils # (A) 7.7 k/uL (1.3-7.7); Neutrophils % (A) 73 %; Platelet Count 302 k/uL (150-450); RBC 5.52 m/uL (3.80-5.40); RDW 12.9 % (11.5-15.5); WBC 10.6 k/uL (3.8-10.6)
[2023-11-11 15:51] LABS: ALT 20 U/L (4-34); AST 19 U/L (14-36); African American GFR (CKD) >90 (>60 ml/min/1.73 sqM); Albumin 4.5 g/dL (3.5-5.0); Alkaline Phosphatase 58 U/L (38-126); Blood Urea Nitrogen 14 mg/dL (7-17); Calcium 9.3 mg/dL (8.4-10.2); Carbon Dioxide 27 mmol/L (22-30); Glucose 107 mg/dL (74-99); Lipase 89 U/L (23-300); Non-African American GFR(CKD) >90 (>60 ml/min/1.73 sqM); Total Bilirubin 0.9 mg/dL (0.2-1.3)
[2023-11-11 16:08] LABS: Appearance,Urine Cloudy (Clear); Bilirubin,Urine Negative (Negative); Blood,Urine Negative (Negative); Color,Urine Light Yellow; Glucose,Urine (UA) Negative (Negative); Ketones,Urine 2+ (Negative); Leukocyte Esterase,Urine Negative (Negative); Mucus,Urine Rare /hpf; Nitrite,Urine Negative (Negative); Protein,Urine Negative (Negative); RBC,Urine 1 /hpf (0-5); Specific Gravity,Urine 1.021 (1.001-1.035); Squamous Epithelial Cell,Urine 9 /hpf (0-4); Urobilinogen,Urine <2.0 mg/dL (<2.0); WBC,Urine 1 /hpf (0-5)
[2023-11-11 16:24] LABS: Anion Gap 8 mmol/L; Chloride 103 mmol/L (98-107); Potassium 3.4 mmol/L (3.5-5.1); Sodium 138 mmol/L (137-145)
[2023-11-11 18:36] VITALS: BP 136/81; PULSE 77; RESP 17; TEMP 98.5
== END 2023-11-11 18:36 | disposition home or self-care (01) ==
LOC: EC 14:32
DX: R10.9 Unspecified abdominal pain (principal); Z87.891 Personal history of nicotine dependence; Z91.048 Other nonmedicinal substance allergy status
CPT/HCPCS: 36415; 80053; 81001; 81025; 83605; 83690; 85025; 93005; 99284